=== PATIENT | female | born 1950 | race Caucasian/White ===

== ENCOUNTER 2017-02-07 14:41 | Emergency (ER) | payer OTHER, MEDICARE ==
[2017-02-07 14:54] VITALS: BP 123/81
[2017-02-07] MEDS ORDERED: BACITRACIN OINT TOP ONE (15:41)
--- NOTE | 2017-02-07 15:41 | ED Physician Documentation ---
History of Present Illness - Stated complaint Stated Complaint: REMOVE STITCHES - Chief complaint Chief Complaint: General - Additonal information Additional information: hx from pt hernán ant L mcnally region a week ago healed well here for staple removal Review of Systems Constitutional: denies: Fever Skin: reports: Laceration (s) PD PAST MEDICAL HISTORY - Past Medical History Past Medical History: Yes Psych: Anxiety, Bipolar disorder - Past Surgical History Past Surgical History: No - Present Medications Home Medications: Ambulatory Orders Medication Instructions Recorded Confirmed Atenolol 25 mg PO DAILY 12/20/14 02/07/17 Bupropion HCl [Wellbutrin Sr] 400 mg PO DAILY 12/20/14 02/07/17 Levothyroxine Sodium [Levoxyl] 25 mg PO DAILY 12/20/14 02/07/17 Oxcarbazepine [Trileptal] 300 mg PO BID 12/20/14 02/07/17 Quetiapine Fumarate [Seroquel Xr] 800 mg PO DAILY 12/20/14 02/07/17 - Allergies Allergies/Adverse Reactions: Allergies Allergy/AdvReac Type Severity Reaction Status Date / Time Penicillins AdvReac Rash Verified 02/07/17 14:54 - Social History Does the pt smoke?: No Smoking Status: Never smoker Does the pt drink ETOH?: No Does the pt have substance abuse?: No - Immunizations Immunizations are current?: Yes Immunizations: TDAP current <10years - POLST Patient has POLST: No PD ED PE NORMAL - Vitals Vital signs reviewed: Yes - Derm Derm: Other (wound appears well healed, hernán removed by nurse Foster) Results - Vitals Vitals: Vital Signs - 24 hr 02/07/17 14:51 Temperature 36.2 C L Heart Rate 66 Respiratory 16 Rate Blood Pressure 123/81 H O2 Saturation 99 Oxygen O2 Source Room air Departure - Departure Disposition: 01 Home, Self Care Clinical Impression: Removal of hernán Condition: Good Instructions: ED Stap Removal No Complication
== END 2017-02-07 15:44 | disposition home or self-care (01) ==
LOC: ED 14:41
DX: S81.812D Laceration without foreign body, left lower leg, subsequent encounter (principal); X58.XXXD Exposure to other specified factors, subsequent encounter
CPT/HCPCS: 99283; A9270

== ENCOUNTER 2017-04-26 09:55 | Day surgery (SDC) | payer OTHER, MEDICARE ==
[2017-04-26] MEDS ORDERED: LACTATED RINGERS 1,000 ML IV ONE ×2 (10:03→11:01)
[2017-04-26] MEDS ORDERED: MIDAZOLAM 2 MG/2 ML VIAL IVP ONE (10:20)
[2017-04-26] MEDS ORDERED: fentaNYL 100 MCG/2 ML VIAL IVP ONE (10:20)
[2017-04-26 11:43] VITALS: BP 111/56
== END 2017-04-26 09:56 | disposition home or self-care (01) ==
LOC: SDS 09:55
PROVIDERS: ATTEND Surgery
PROC: 0DJD8ZZ Inspection of Lower Intestinal Tract, Via Natural or Artificial Opening Endoscopic (ICD-10-PCS; principal; 2017-04-26 11:00)
DX: Z12.11 Encounter for screening for malignant neoplasm of colon (principal); K64.8 Other hemorrhoids
CPT/HCPCS: G0121; J7120

== ENCOUNTER 2017-07-19 09:25 | Emergency (ER) | payer OTHER, MEDICARE ==
[2017-07-19] MEDS ORDERED: IOPAMIDOL-300 100 ML VIAL IVP ONE ×2 (09:26→15:56)
[2017-07-19] MEDS ORDERED: ACETAMINOPHEN 325 MG TABLET PO STA (10:17)
[2017-07-19] MEDS ORDERED: SODIUM CHLORIDE 0.9% 1,000 ML IV ONE (10:18)
[2017-07-19 10:30] LABS: BASOPHILS % (AUTO) 0.3 %; HGB - HEMOGLOBIN 12.7 g/dL (12.0-16.0); LYMPHOCYTES # (AUTO) 1.3 10^3/uL (1.5-3.5); LYMPHOCYTES % (AUTO) 30.9 %; MEAN CORPUSCULAR HEMOGLOBIN 32.3 pg (27.0-31.0); MEAN CORPUSCULAR HGB CONC 33.5 g/dL (32.0-36.0); MEAN CORPUSCULAR VOLUME 96.2 fL (81.0-99.0); MEAN PLATELET VOLUME 9.6 fL (7.9-10.8); MONOCYTES # (AUTO) 0.4 10^3/uL (0.0-1.0); MONOCYTES % (AUTO) 10.6 %; NEUTROPHILS # (AUTO) 2.4 10^3/uL (1.5-6.6); NEUTROPHILS % (AUTO) 58.2 %; PLT - PLATELET COUNT 193 10^3/uL (130-450); RED BLOOD COUNT 3.94 10^6/uL (4.20-5.40); RED CELL DISTRIBUTION WIDTH 13.2 % (12.0-15.0); WHITE BLOOD COUNT 4.1 x10^3/uL (4.8-10.8)
[2017-07-19 10:40] LABS: ALBUMIN 4.3 g/dL (3.2-5.5); ALBUMIN/GLOBULIN RATIO 1.3 (1.0-2.2); BILIRUBIN,TOTAL 0.3 mg/dL (0.2-1.0); CALCIUM 9.7 mg/dL (8.5-10.3); CREATININE 1.5 mg/dL (0.4-1.0); TOTAL PROTEIN 7.5 g/dL (6.7-8.2)
--- NOTE | 2017-07-19 10:52 | ED Physician Documentation ---
PD HPI FOCAL NEURO - Stated complaint Stated Complaint: WU/UNABLE TO SPEAK/UNBALANCED - Chief complaint Chief Complaint: Neuro - History obtained from History obtained from: Patient - History of Present Illness Timing - onset: Today Timing - details: Abrupt onset (awoke with feeling of thinking slowly/foggy, some slurring of speech though speech content is okay, and some headache. No focal weakness per se. Had similar 10 days ago while on vacation in [place], and seen in hospital there with overnight stay, testing included: ECG, labs, CT head, carotid dopplers (15% stenosis at most), MRI brain (no CVA, age related white matter disease, no MS/tumors), and ECHO (showing a possible PFO/ASD small defect and recommended DEIDRE or ECHO with Bubble study). Dx with presumed TIA and to take baby ASA daily, which she has done the past 4-5 days (did not initially) .) Severity of deficit: Moderate Weakness: No: Face, Arm, Leg Numbness: No: Face, Arm, Leg Associated symptoms: Headache, Other (trouble speaking) Baseline status: positive: A&OX3, ambulatory, indep Similar symptoms before: Diagnosis (TIA with symptoms lasted about a day, occurred 10 days ago while on vacation in [place], seen at Hospital there with CT, labs, MRI, carotids, and ECHO. No findings except question of ASD/PFO. told to take ASA daily. Was doing okay until today, with similar symptoms again. Trouble speaking without focal weakness. Feeling off balance.) Recently seen: Emergency Dept, Admitted (10 days ago in [place] - she has summary and imaging/lab reports and results with her.) Review of Systems Constitutional: denies: Fever Eyes: denies: Loss of vision, Decreased vision Nose: denies: Rhinorrhea / runny nose, Congestion Throat: denies: Sore throat Cardiac: denies: Chest pain / pressure, Palpitations Respiratory: denies: Cough GI: denies: Abdominal Pain, Nausea, Vomiting, Diarrhea : denies: Dysuria, Frequency Skin: denies: Rash, Lesions, Abrasion (s), Laceration (s) Neurologic: reports: Difficulty speaking, Confused, Headache. denies: Generalized weakness, Focal weakness, Numbness, Near syncope, Head injury Psychiatric: reports: Insomnia (had taken 2 Ativan last night for sleep, but does this occasionally. More often takes one.). denies: Depressed, Anxiety PD PAST MEDICAL HISTORY - Past Medical History Cardiovascular: Hypertension Respiratory: None Neuro: TIA Endocrine/Autoimmune: None GI: None : None Psych: Depression, Anxiety, Bipolar disorder Musculoskeletal: None - Past Surgical History Past Surgical History: No General: Colonoscopy - Present Medications Home Medications: Ambulatory Orders Medication Instructions Recorded Confirmed Bupropion HCl [Wellbutrin Sr] 150 mg PO DAILY 12/20/14 04/26/17 Levothyroxine Sodium [Levoxyl] 25 mg PO DAILY 12/20/14 04/26/17 Oxcarbazepine [Trileptal] 300 mg PO BID 12/20/14 04/26/17 Quetiapine Fumarate [Seroquel Xr] 800 mg PO DAILY 12/20/14 04/26/17 Aripiprazole [Abilify] 30 mg PO DAILY 04/26/17 04/26/17 LORazepam [Ativan] 0.5 mg PO DAILY 04/26/17 04/26/17 Metoprolol Succinate 25 mg PO DAILY 04/26/17 04/26/17 - Allergies Allergies/Adverse Reactions: Allergies Allergy/AdvReac Type Severity Reaction Status Date / Time Penicillins AdvReac Rash Verified 02/07/17 14:54 - Social History Does the pt smoke?: No Smoking Status: Never smoker Does the pt drink ETOH?: No Does the pt have substance abuse?: No - Family History Family history: reports: Non contributory - Immunizations Immunizations are current?: Yes Immunizations: TDAP current <10years - POLST Patient has POLST: No PD ED PE NORMAL - Vitals Vital signs reviewed: Yes - General General: No acute distress, Well developed/nourished, Other (seems somnolent and with some slower articulation but no dysarthria per se. Content of speech is good. ) - HEENT HEENT: Atraumatic, Ears normal, Pharynx benign, Other - Neck Neck: Supple, no meningeal sign, No adenopathy - Cardiac Cardiac: RRR, No murmur - Respiratory Respiratory: Clear bilaterally - Abdomen Abdomen: Soft, Non tender - Female Female : Deferred - Rectal Rectal: Deferred - Back Back: No CVA TTP - Derm Derm: Normal color, Warm and dry - Extremities Extremities: No deformity, No tenderness to palpate, Normal ROM s pain, No edema , No calf tenderness / cord - Neuro Neuro: Alert and oriented X 3, telephone lines repairer 2-12 intact, No motor deficit, No sensory deficit Eye Opening: Spontaneous Motor: Obeys Commands Verbal: Oriented GCS Score: 15 - Psych Psych: Normal mood NIHSS - Level of Consciousness Level of consciousness: (0) Alert, Keenly responsive LOC Questions: (0) Answers both Q's correct LOC Commands: (0) Performs both correctly - Gaze Best Gaze: (0) Normal - Visual Visual: (0) No loss - Facial Palsy Facial Palsy: (0) Normal, symmetrical movement - Motor Arms (both separate) Motor Arm (right): (0) No drift Motor Arm (left): (0) No drift - Motor Legs (both separate) Motor Leg (right): (0) No drift Motor Leg (left): (0) No drift - Limb Ataxia Limb Ataxia: (0) Absent - Sensory Sensory: (0) Normal - Best Language Best Language: (0) No aphasia - Dysarthria Dysarthria: (1) [id number] dysarthria - Extinction and Inattention (formally neg Extinction and inattention: (0) No abnormality - Total Score/Results Total Score/Result: 1 Results - Vitals Vitals: Vital Signs - 24 hr 07/19/17 07/19/17 07/19/17 09:37 11:30 13:02 Temperature 36.8 C Heart Rate 73 80 69 Respiratory 14 22 13 Rate Blood Pressure 145/84 H 118/99 H 152/89 H O2 Saturation 98 99 100 Oxygen O2 Source Room air - Labs Labs: Laboratory Tests 07/19/17 07/19/17 09:55 09:55 WBC 4.1 L RBC 3.94 L Hgb 12.7 Hct 37.9 MCV 96.2 MCH 32.3 H MCHC 33.5 RDW 13.2 Plt Count 193 MPV 9.6 Neut # 2.4 Lymph # 1.3 L [place] # 0.4 Eos # 0.0 Baso # 0.0 Absolute Nucleated RBC 0.00 Nucleated RBC % 0.1 Sodium 140 Potassium 3.9 Chloride 108 Carbon Dioxide 27 Anion Gap 5.0 L BUN 32 H Creatinine 1.5 H Estimated GFR (MDRD) 35 L Glucose 71 Calcium 9.7 Total Bilirubin 0.3 AST 24 ALT 17 Alkaline Phosphatase 95 Total Protein 7.5 Albumin 4.3 Globulin 3.2 Albumin/Globulin Ratio 1.3 Lipase 29 - Rads (name of study) head CT and brain angio Radiology: Prelim report reviewed (no acute findings. No focal areas of abnormal flow. ) PD MEDICAL DECISION MAKING - ED course Complexity details: reviewed results, re-evaluated patient, considered differential (cosndier TIA, complex migraine, med side effect, MS or other cause. She had had MRI brain, carotid dopplers, ECHO, and labs 10 days ago and had reports with her. These do not need repeating. CT/CT-A here does not show any flow limitation of brain. Have her increase aspirin dose. ), d/w patient, d/ w foreign legal consultant (Dr. Morales her psychiatrist, who did not feel any of her current meds are culprit for symptoms and would leave current doses. She will see patient next . ) Departure - Departure Disposition: Home, Self Care Clinical Impression: Aphasia TIA (transient ischemic attack) Qualifiers: Transient cerebral ischemia type: unspecified Qualified Code(s): G45.9 - Transient cerebral ischemic attack, unspecified Condition: Stable Record reviewed to determine appropriate education?: Yes Instructions: ED Transient Ischemic Attack Follow-Up: Kalee Morales MD [Physician No Access] - Comments: Drink lots of fluids. Increase your aspirin dose from 1-2 baby aspirins daily. Continue your other medications with the exception of do not take any Ativan at night for sleep. Follow-up with Dr. Chamorro next week on . Return or recheck if recurrent or worsening symptoms. At this point we will presume vascular such as TIA although it also consider possibility of medication side effect, complex migraine, other causes. Discharge Date/Time: 07/19/17 13:28
[2017-07-19] MEDS ORDERED: IOPAMIDOL-300 100 ML VIAL ONE (11:17)
--- NOTE | 2017-07-19 11:46 | CT Preliminary Report ---
Exam: CT HEAD ANGIO Impression: 1. There is no acute intracranial abnormality on the noncontrast CT scan of the head. If the patient has persistent symptoms then further evaluation with MRI of the brain without contrast may be useful and can be obtained as deemed clinically appropriate. 2. There is a mild degree of chronic small vessel ischemia. 3. There is no hemodynamically significant stenosis within the head. There is no evidence of proximal arterial occlusion. 4. Normal postcontrast CT scan of the head. SITE ID: [id number]
--- NOTE | 2017-07-19 12:49 | CT Report ---
EXAM: CT ANGIOGRAM HEAD. CT SCAN OF THE HEAD WITHOUT AND WITH CONTRAST. EXAM DATE: 07/19/2017 11:06 AM CLINICAL HISTORY: Aphasia and balance symptoms today. COMPARISON: CT scan of the head without contrast 02/18/2016. TECHNIQUE: - CT Scan Head: Using a multidetector scanner, axial images were acquired from the foramen magnum to the skull vertex prior to and following contrast administration. - CT Angiogram: Using a multidetector scanner, high-resolution axial images were acquired from the sk ull base through vertex following rapid infusion of intravenous contrast. Reformats: Multiplanar MIP reformats were reconstructed. Nascet criteria used for stenosis measurement. IV Contrast: 80 mL Isovue 300. In accordance with CT protocol optimization, one or more of the following dose reduction techniques w ere utilized for this exam: automated exposure control, adjustment of mA and/or KV based on patient s ize, or use of iterative reconstructive technique. FINDINGS: CT Scan of the Head Without Contrast: The bilateral mastoid air cells are normally aerated. The imaged portions of the paranasal sinuses are normally aerated. There is a mild degree of hyperostosis frontalis. There is no acute fracture of the calvaria. There is a small hypodensity demonstrated in the dorsum o f the left putamen (11, 3). This may reflect an old lacunar infarction versus a small perivascular sp juan r. The goodman-white differentiation remains distinct. There is mild periventricular, subcortical, and deep white matter hypodensities consistent with a mil d degree of chronic small vessel ischemia. There is minimal generalized volume loss. There is no acute collection of blood or blood products, or mass. There is no midline shift. The goodman -white differentiation remains distinct outside of the areas of chronic ischemia. CT Scan of the Head With Contrast: The imaged portions of the orbits are normal in appearance. There is normal enhancement within the brain parenchyma. There is normal enhancement within the deep venous sinuses. CT Angiogram of the Head: The right vertebral artery intradural segment is smooth and nonstenotic. The left vertebral artery in tradural segment is smooth and nonstenotic. The right posterior inferior cerebellar artery is without flow-limiting stenosis. The left posterior-inferior cerebellar artery is without flow-limiting stenosis. The basilar artery is without flow-limiting stenosis. The right anterior inferior cerebellar artery is smooth and nonstenotic. The left anterior inferior c erebellar artery is smooth and nonstenotic. The basilar artery is without flow-limiting stenosis. The left superior cerebellar artery is without flow-limiting stenosis. The right superior cerebellar artery is without flow-limiting stenosis. The left P1 and P2 segments of the left posterior cerebral artery are without flow-limiting stenosis. The right P1 and P2 segments of the right posterior cerebral artery are without flow-limiting stenosi s. The right intracranial internal carotid artery is smooth and nonstenotic. The left intracranial inter nal carotid artery is smooth and nonstenotic. The right M1 and proximal M2 segments of the right middle cerebral artery are smooth and nonstenotic. The left M1 and proximal M2 segments of the left middle cerebral artery are smooth and nonstenotic. The right A1 segment is smooth and nonstenotic. The left A1 segment is smooth and nonstenotic. There is a small anterior communicating artery. The right A2 segment of the right anterior cerebral artery is smooth and nonstenotic. The left A2 segment of the left anterior cerebral artery is smooth and non stenotic. IMPRESSION: 1. There is no acute intracranial abnormality on the noncontrast CT scan of the head. If the patient has persistent symptoms, then further evaluation with MRI of the brain without contrast may be useful and can be obtained as deemed clinically appropriate. 2. There is a mild degree of chronic small vessel ischemia. 3. There is no hemodynamically significant stenosis within the head. There is no evidence of proximal arterial occlusion. 4. Normal postcontrast CT scan of the head. Referring Provider Line: [phone] SITE ID: [id number]
[2017-07-19 13:03] VITALS: BP 152/89
[2017-07-19] MEDS ORDERED: ASPIRIN CHEW 81 MG TABLET PO STA (13:09)
== END 2017-07-19 13:28 | disposition home or self-care (01) ==
LOC: ED 09:25
DX: G45.9 Transient cerebral ischemic attack, unspecified (principal); R47.01 Aphasia; I10 Essential (primary) hypertension
CPT/HCPCS: 36415; 70496; 80053; 83690; 85025; 96360; 96361; 99284; A9270; Q9967

== ENCOUNTER 2018-03-12 10:00 | Outpatient (CLI) | payer OTHER, MEDICARE ==
--- NOTE | 2018-03-12 17:31 | MRI Report ---
Reason: TIA Procedure Date: 03/12/2018 Accession Number: [id number] / [id number] Procedure: MRI - Angio Brain W/O (MRA) CPT Code: FULL RESULT: MR ANGIOGRAM HEAD WITHOUT CONTRAST INDICATION: 68-year-old female. Episode of aphasia and balance difficulty in late June 2017. Concern for possible TIA. Please assess. TECHNIQUE: 3D [id number] MR angiography. COMPARISON: CT angiogram 07/19/2017. FINDINGS: The internal carotid arteries remain widely patent bilaterally. No ICA aneurysm is demonstrated. The A1 segment of the left anterior cerebral artery is minimally hypoplastic with slightly larger right A1 segment. No definite anterior indicating arteries demonstrated. Good flow-related enhancement is seen in the imaged SAM branches bilaterally. The middle cerebral arteries are unremarkable. No aneurysm is demonstrated and there is no evidence of occlusion or hemodynamically significant stenosis affecting main branches of either MCA. The vertebral arteries and PICAs appear widely patent. No aneurysm is demonstrated at either PICA origin. The basilar artery, superior cerebellar arteries and posterior cerebral arteries appear widely patent. Neither posterior communicating artery is identified with certainty. No aneurysms are seen arising from the basilar artery trunk or apex. IMPRESSION: Normal [place] [facility] [place] MR angiogram.
== END 2018-03-12 10:01 | disposition home or self-care (01) ==
LOC: DI 10:00
PROVIDERS: ATTEND Psychiatry & Neurology Neurology
DX: G45.9 Transient cerebral ischemic attack, unspecified (principal)
CPT/HCPCS: 70544; 81599; 87070; 87205; 87529

== ENCOUNTER 2018-12-20 08:00 | Outpatient (CLI) | payer OTHER, MEDICARE | END 2018-12-20 23:59 | disposition home or self-care (01) | LOC: LAB.R 08:00 | PROVIDERS: ATTEND Internal Medicine Endocrinology, Diabetes & Metabolism | DX: E34.9 Endocrine disorder, unspecified (principal) | CPT/HCPCS: 81599; 82340; 82570 ==

== ENCOUNTER 2019-02-18 09:12 | Outpatient (CLI) | payer OTHER, MEDICARE | END 2019-02-18 09:13 | disposition critical access hospital (66) | LOC: EMS 09:12 | PROVIDERS: ATTEND Surgery | DX: M54.5 Low back pain (principal); M25.552 Pain in left hip; V48.5XXA Car driver injured in noncollision transport accident in traffic accident, initial encounter; Y92.413 State road as the place of occurrence of the external cause | CPT/HCPCS: A0425; A0429 ==

== ENCOUNTER 2019-02-18 09:30 | Emergency (ER) | payer OTHER, MEDICARE ==
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
[2019-02-18] MEDS ORDERED: HYDROmorphone 1 MG/ML CARPUJECT IM STA (11:56)
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
[2019-02-18] MEDS ORDERED: SODIUM CHLORIDE 0.9% 1,000 ML IV ONE (14:27)
[2019-02-18] MEDS ORDERED: HYDROmorphone 1 MG/ML CARPUJECT IVP STA (14:27)
[2019-02-18 14:56] LABS: BASOPHILS # (AUTO) 0.1 10^3/uL (0.0-0.1); BASOPHILS % (AUTO) 0.5 %; EOSINOPHILS # (AUTO) 0.2 10^3/uL (0.0-0.7); EOSINOPHILS % (AUTO) 1.6 %; HGB - HEMOGLOBIN 12.4 g/dL (12.0-16.0); LYMPHOCYTES # (AUTO) 0.4 10^3/uL (1.5-3.5); MEAN CORPUSCULAR HEMOGLOBIN 32.5 pg (27.0-31.0); MEAN CORPUSCULAR HGB CONC 32.7 g/dL (32.0-36.0); MEAN CORPUSCULAR VOLUME 99.2 fL (81.0-99.0); MEAN PLATELET VOLUME 10.7 fL (7.9-10.8); MONOCYTES # (AUTO) 0.5 10^3/uL (0.0-1.0); NEUTROPHILS % (AUTO) 88.5 %; PLT - PLATELET COUNT 201 10^3/uL (130-450); RED BLOOD COUNT 3.82 10^6/uL (4.20-5.40); RED CELL DISTRIBUTION WIDTH 13.1 % (12.0-15.0); WHITE BLOOD COUNT 10.2 x10^3/uL (4.8-10.8)
[2019-02-18 15:10] LABS: ALBUMIN 4.1 g/dL (3.2-5.5); ALBUMIN/GLOBULIN RATIO 1.3 (1.0-2.2); BILIRUBIN,TOTAL 0.8 mg/dL (0.2-1.0); CALCIUM 9.6 mg/dL (8.5-10.3); CREATININE 1.5 mg/dL (0.4-1.0); TOTAL PROTEIN 7.2 g/dL (6.7-8.2)
[2019-02-18 15:24] VITALS: BP 116/78
== END 2019-02-18 16:45 | disposition short-term general hospital (02) ==
LOC: EDUNIT# → ED 09:30
DX: S32.010A Wedge compression fracture of first lumbar vertebra, initial encounter for closed fracture (principal); S32.020A Wedge compression fracture of second lumbar vertebra, initial encounter for closed fracture; S22.080A Wedge compression fracture of T11-T12 vertebra, initial encounter for closed fracture; V48.0XXA Car driver injured in noncollision transport accident in nontraffic accident, initial encounter; Y92.410 Unspecified street and highway as the place of occurrence of the external cause; E04.9 Nontoxic goiter, unspecified; M17.12 Unilateral primary osteoarthritis, left knee; M51.36 Other intervertebral disc degeneration, lumbar region; M50.321 Other cervical disc degeneration at C4-C5 level; M85.88 Other specified disorders of bone density and structure, other site; I10 Essential (primary) hypertension
CPT/HCPCS: 36415; 72100; 72125; 72131; 73564; 80053; 83690; 85025; 96372; 96374; 99284; 99285; J1170

== ENCOUNTER 2019-02-18 16:38 | Outpatient (CLI) | payer OTHER, MEDICARE | END 2019-02-18 16:39 | disposition short-term general hospital (02) | LOC: EMS 16:38 | PROVIDERS: ATTEND Surgery | DX: M54.5 Low back pain (principal) | CPT/HCPCS: A0425; A0428 ==

== ENCOUNTER 2019-04-16 09:38 | Outpatient (CLI) | payer BC, MEDICARE ==
[2019-04-16 10:22] LABS: CREATININE 1.4 mg/dL (0.4-1.0); PHOSPHORUS 4.3 mg/dL (2.5-4.6)
== END 2019-04-16 09:39 | disposition home or self-care (01) ==
LOC: LAB 09:38
PROVIDERS: ATTEND Internal Medicine Endocrinology, Diabetes & Metabolism
DX: M81.0 Age-related osteoporosis without current pathological fracture (principal)
CPT/HCPCS: 36415; 82306; 82565; 83970; 84100

== ENCOUNTER 2019-07-31 10:43 | Outpatient (CLI) | payer BC, MEDICARE ==
--- NOTE | 2019-07-31 19:57 | XRAY Report ---
Reason: WEDGE COMPRESSION FRACTURE LUMBAR VERTEBRA Procedure Date: 07/31/2019 Accession Number: [id number] / [id number] Procedure: XR - Thoracic Spine 3 View CPT Code: Final Report FULL RESULT: EXAM: THORACIC SPINE RADIOGRAPHY EXAM DATE: 07/31/2019 11:07 AM. CLINICAL HISTORY: WEDGE COMPRESSION FRACTURE LUMBAR VERTEBRA. Compression fractures T12, L1, and L2. COMPARISON: LUMBAR SPINE 2 VIEW 02/18/2019 10:39 AM. TECHNIQUE: 4 views. FINDINGS: Alignment: New moderate focal kyphosis at T12. No abnormal subluxation is identified on flexion or extension views. Mild right convex thoracic spine and left convex thoracolumbar junction scoliosis, increased. Bones: The thoracolumbar junction is poorly penetrated. There are moderate anterior superior wedge compression deformities of T12 and L1 vertebrae which appear increased. There is a moderate anterior superior wedge compression deformity of L2 vertebral body without significant change. Disks: Minimal disk height loss and endplate osteophyte formation indicating degenerative disk disease at multiple mid thoracic levels. Soft Tissues: Normal. The visualized lungs and cardiomediastinal silhouette are normal. IMPRESSION: 1. The thoracolumbar junction is suboptimally visualized on lateral views. Increased moderate T12 and L1 and unchanged moderate L2 anterior superior wedge compression deformities. New moderate focal kyphosis at T12. 2. Mild right convex thoracic and moderate left convex thoracolumbar junction scoliosis, increased. 3. Minimal multilevel midthoracic degenerative disk disease. RADIA
== END 2019-07-31 10:44 | disposition home or self-care (01) ==
LOC: DI 10:43
PROVIDERS: ATTEND Neurological Surgery
DX: M48.54XD Collapsed vertebra, not elsewhere classified, thoracic region, subsequent encounter for fracture with routine healing (principal); M48.56XD Collapsed vertebra, not elsewhere classified, lumbar region, subsequent encounter for fracture with routine healing; M40.204 Unspecified kyphosis, thoracic region; M51.34 Other intervertebral disc degeneration, thoracic region
CPT/HCPCS: 72072

== ENCOUNTER 2019-08-13 13:21 | Outpatient (CLI) | payer BC, MEDICARE | END 2019-08-13 13:22 | disposition home or self-care (01) | LOC: LAB 13:21 | PROVIDERS: ATTEND Family Medicine | DX: E03.9 Hypothyroidism, unspecified (principal) | CPT/HCPCS: 36415; 84443 ==

== ENCOUNTER 2019-11-14 10:59 | Emergency (ER) | payer BC, MEDICARE ==
[2019-11-14] MEDS ORDERED: SODIUM CHLORIDE 0.9% 1,000 ML IV STA (11:11)
--- NOTE | 2019-11-14 11:13 | ED Physician Documentation ---
PD HPI FOCAL NEURO - Stated complaint Stated Complaint: DIFFICULTY SPEAKING, DIZZY, HEAD PRESSURE - History obtained from History obtained from: Patient, Family - History of Present Illness Timing - onset: Enter time (844), Today Timing - duration: Minutes Timing - details: Abrupt onset, Still present Severity of deficit: Moderate Weakness: No: Face, Arm, Hand, Leg, Foot, Right, Left Numbness: No: Face, Arm, Hand, Leg, Foot, Right, Left Associated symptoms: Headache. No: Nausea / vomiting, Seizure, Syncope, Fall, Head injury, Chest pain, Neck pain, Back pain, Fever Contributing factors: negative: Anticoagulated, Vascular dz, Atrial fibrillation Baseline status: positive: A&OX3, ambulatory, indep Similar symptoms before: Has not had sx before Recently seen: Not recently seen - Additional information Additional information: 69-year-old female with history of bipolar disorder and hypertension has had prior TIA in today she developed difficulty with her speech again and felt quite off balance when she was walking. This occurred about 15 minutes after a walk with a friend. She has had prior work-up of a TIA in 2018 and she never completed the bubble study for the echo. She had complete recovery from her prior TIAs and the presentation today is similar to what she has had twice previously.She has developed previously both dysarthria and an off-balance gait. She has never developed unilateral weakness or numbness. Review of Systems Constitutional: denies: Fever Eyes: denies: Loss of vision, Decreased vision, Photophobia Ears: denies: Ear pain Nose: denies: Congestion Throat: denies: Sore throat Cardiac: denies: Chest pain / pressure, Palpitations Respiratory: denies: Dyspnea, Cough GI: denies: Abdominal Pain, Nausea, Vomiting : denies: Dysuria, Frequency PD PAST MEDICAL HISTORY - Past Medical History Cardiovascular: Hypertension Respiratory: None Endocrine/Autoimmune: None GI: None : None Psych: Depression, Anxiety, Bipolar disorder Musculoskeletal: None - Past Surgical History Past Surgical History: No General: Colonoscopy - Present Medications Home Medications: Ambulatory Orders Medication Instructions Recorded Confirmed Levothyroxine Sodium [Levoxyl] 25 mg PO DAILY 12/20/14 04/26/17 OXcarbazepine [Trileptal] 300 mg PO BID 12/20/14 04/26/17 Quetiapine Fumarate [Seroquel Xr] 800 mg PO DAILY 12/20/14 04/26/17 buPROPion HCl [Wellbutrin Sr] 150 mg PO DAILY 12/20/14 04/26/17 Aripiprazole [Abilify] 30 mg PO DAILY 04/26/17 04/26/17 LORazepam [Ativan] 0.5 mg PO DAILY 04/26/17 04/26/17 Metoprolol Succinate 25 mg PO DAILY 04/26/17 04/26/17 - Allergies Allergies/Adverse Reactions: Allergies Allergy/AdvReac Type Severity Reaction Status Date / Time Penicillins AdvReac Rash Verified 02/18/19 09:34 - Social History Does the pt smoke?: No Smoking Status: Never smoker Does the pt drink ETOH?: No Does the pt have substance abuse?: No - Immunizations Immunizations are current?: Yes Immunizations: TDAP current <10years - POLST Patient has POLST: No PD ED PE NORMAL - Vitals Vital signs reviewed: Yes (Hypertensive mild) - General General: Alert and oriented X 3, No acute distress, Well developed/nourished - HEENT HEENT: Atraumatic, PERRL, EOMI, Ears normal, Other (Dry mucous membranes) - Neck Neck: Supple, no meningeal sign, No bony TTP - Cardiac Cardiac: RRR, No murmur - Respiratory Respiratory: No respiratory distress, Clear bilaterally - Abdomen Abdomen: Soft, Non tender - Back Back: No CVA TTP, No spinal TTP - Derm Derm: Normal color, Warm and dry, No rash - Extremities Extremities: No deformity, No edema, No calf tenderness / cord - Neuro Neuro: Alert and oriented X 3, door builder 2-12 intact, No motor deficit, No sensory deficit, Other (Dysarthric speech Is mildly dysarthric) Eye Opening: Spontaneous Motor: Obeys Commands Verbal: Oriented GCS Score: 15 - Psych Psych: Normal mood, Normal affect NIHSS - Time Time: 11:10 - Level of Consciousness Level of consciousness: (0) Alert, Keenly responsive LOC Questions: (0) Answers both Q's correct LOC Commands: (0) Performs both correctly - Gaze Best Gaze: (0) Normal - Visual Visual: (0) No loss - Facial Palsy Facial Palsy: (0) Normal, symmetrical movement - Motor Arms (both separate) Motor Arm (right): (0) No drift Motor Arm (left): (0) No drift - Motor Legs (both separate) Motor Leg (right): (0) No drift Motor Leg (left): (0) No drift - Limb Ataxia Limb Ataxia: (0) Absent - Sensory Sensory: (0) Normal - Best Language Best Language: (0) No aphasia - Dysarthria Dysarthria: (1) Rges-ro-myoqnxli dysarthria - Extinction and Inattention (formally neg Extinction and inattention: (0) No abnormality - Total Score/Results Total Score/Result: 1 Results - Vitals Vitals: Vital Signs - 24 hr 11/14/19 11/14/19 11/14/19 11:09 11:34 12:00 Temperature 36.8 C 36.4 C L Heart Rate 81 61 60 Respiratory 16 16 16 Rate Blood Pressure 148/84 H 137/86 H 133/82 H O2 Saturation 99 99 97 11/14/19 11/14/19 13:05 14:00 Temperature 36.8 C Heart Rate 61 62 Respiratory 22 21 Rate Blood Pressure 135/86 H 140/89 H O2 Saturation 99 98 Oxygen O2 Source Room air - EKG (time done) 1139 Rate: Rate (enter#) (59) Ischemia: Normal ST segments Compare to prior EKG: Old EKG unavailable Computer interpretation: Agree with computer - Labs Labs: Laboratory Tests 11/14/19 11/14/19 11/14/19 11:10 11:10 11:10 WBC 6.4 RBC 3.63 L Hgb 11.8 L Hct 36.5 L MCV 100.6 H MCH 32.5 H MCHC 32.3 RDW 13.0 Plt Count 214 MPV 10.8 Neut # (Auto) 2.8 Lymph # (Auto) 2.0 [place] # (Auto) 0.6 Eos # (Auto) 1.0 H Baso # (Auto) 0.1 Absolute Nucleated RBC 0.00 Nucleated RBC % 0.0 PT 11.3 INR 1.0 Sodium 140 Potassium 4.3 Chloride 111 Carbon Dioxide 21 Anion Gap 8.0 BUN 48 H Creatinine 1.6 H Estimated GFR (MDRD) 32 L Glucose 104 H Lactic Acid Calcium 9.4 Total Bilirubin 0.5 AST 18 ALT 16 Alkaline Phosphatase 114 Total Protein 7.0 Albumin 3.9 Globulin 3.1 Albumin/Globulin Ratio 1.3 Lipase 40 Urine Color Urine Clarity Urine pH Ur Specific [place] Urine Protein Urine Glucose (UA) Urine Ketones Urine Occult Blood Urine Nitrite Urine Bilirubin Urine Urobilinogen Ur Leukocyte Esterase Ur Microscopic Review Urine Culture Comments 11/14/19 11/14/19 11:10 12:42 WBC RBC Hgb Hct MCV MCH MCHC RDW Plt Count MPV Neut # (Auto) Lymph # (Auto) [place] # (Auto) Eos # (Auto) Baso # (Auto) Absolute Nucleated RBC Nucleated RBC % PT INR Sodium Potassium Chloride Carbon Dioxide Anion Gap BUN Creatinine Estimated GFR (MDRD) Glucose Lactic Acid 0.9 Calcium Total Bilirubin AST ALT Alkaline Phosphatase Total Protein Albumin Globulin Albumin/Globulin Ratio Lipase Urine Color YELLOW Urine Clarity CLEAR Urine pH 6.0 Ur Specific [place] <=1.005 Urine Protein NEGATIVE Urine Glucose (UA) NEGATIVE Urine Ketones NEGATIVE Urine Occult Blood NEGATIVE Urine Nitrite NEGATIVE Urine Bilirubin NEGATIVE Urine Urobilinogen 0.2 (NORMAL) Ur Leukocyte Esterase NEGATIVE Ur Microscopic Review NOT INDICATED Urine Culture Comments NOT INDICATED - Rads (name of study) CTA neck Radiology: Prelim report reviewed (Impression: No hemodynamically significant stenosis can be seen within the arteries of the neck. Bilateral thyroid nodules are seen, which are more prominent on the left than the right. If not previously worked up, please consider a dedicated thyroid ultrasound for further evaluation. Cervical sp), EMP read indepedently ( Cervical spine degenerative changes are seen.), See rad report CTA head Radiology: Prelim report reviewed (Impression: No significant intracranial abnormality is seen. No significant abnormality of intracranial arteries can be seen. If there strong clinical concern concern for stroke, please consider a dedicated brain MRI for further evaluation (assuming that there is no contraindication to MRI).), EMP read indepedently, See rad report Procedures - IVC sono (time) 1114 Bedside IVC sono: IVC measures (cm) (1.12), IVC collapsed c insp (cm) (comp lete), Dehydration (est 1+ liter deficit.) PD MEDICAL DECISION MAKING - ED course Complexity details: reviewed old records, reviewed results, re-evaluated patient, considered differential, d/w patient, d/w family ED course: 69-year-old female presents with being off balance and dysarthric in her speech. She has had similar presentation 2 years ago with a TIA both in [place] and here in [place] within 2 weeks of each other. She has had a complete work-up for stroke. Today she is found to be dehydrated on interrogation the inferior vena cava and she is administered saline. She has improvement in her symptoms and will follow up with her PMD to finish a stroke work up to include an echo bubble study. Departure - Departure Disposition: 01 Home, Self Care Clinical Impression: Dehydration TIA (transient ischemic attack) Qualifiers: Transient cerebral ischemia type: other Qualified Code(s): G45.8 - Other transient cerebral ischemic attacks and related syndromes Condition: Stable Instructions: ED Dehydration Follow-Up: RESHMA BETH MD [Primary Care Provider] - Comments: Today it appears you were dehydrated and this likely contributed to the TIA today. Hydrate well with at least 64 onces of water per day. You will need to follow up with Reshma about a "bubble study" of your heart. Discharge Date/Time: 11/14/19 14:27
[2019-11-14 11:18] LABS: BASOPHILS # (AUTO) 0.1 10^3/uL (0.0-0.1); BASOPHILS % (AUTO) 0.8 %; EOSINOPHILS % (AUTO) 15.1 %; HGB - HEMOGLOBIN 11.8 g/dL (12.0-16.0); LYMPHOCYTES % (AUTO) 31.4 %; MEAN CORPUSCULAR HEMOGLOBIN 32.5 pg (27.0-31.0); MEAN CORPUSCULAR HGB CONC 32.3 g/dL (32.0-36.0); MEAN CORPUSCULAR VOLUME 100.6 fL (81.0-99.0); MEAN PLATELET VOLUME 10.8 fL (7.9-10.8); MONOCYTES # (AUTO) 0.6 10^3/uL (0.0-1.0); MONOCYTES % (AUTO) 8.6 %; NEUTROPHILS # (AUTO) 2.8 10^3/uL (1.5-6.6); NEUTROPHILS % (AUTO) 43.8 %; PLT - PLATELET COUNT 214 10^3/uL (130-450); RED BLOOD COUNT 3.63 10^6/uL (4.20-5.40); WHITE BLOOD COUNT 6.4 x10^3/uL (4.8-10.8)
[2019-11-14 11:24] LABS: PT - PROTHROMBIN TIME 11.3 secs (9.9-12.6)
[2019-11-14 11:32] LABS: ALBUMIN 3.9 g/dL (3.2-5.5); ALBUMIN/GLOBULIN RATIO 1.3 (1.0-2.2); BILIRUBIN,TOTAL 0.5 mg/dL (0.2-1.0); CALCIUM 9.4 mg/dL (8.5-10.3); CREATININE 1.6 mg/dL (0.4-1.0)
[2019-11-14] MEDS ORDERED: IOVERSOL 320 100 ML VIAL IVP ONE (11:46)
--- NOTE | 2019-11-14 11:56 | CT Report ---
PROCEDURE: ANGIO HEAD W/WO INDICATIONS: dysarthria, vertigo CONTRAST: IV CONTRAST: Optiray 320 ml: 80 PO CONTRAST: *NO PO CONTRAST TECHNIQUE: Precontrast 4.5 mm thick angled axial sections acquired from the foramen magnum to the vertex. Afte r the administration of intravenous contrast, 1 mm thick sections acquired through the [place] of [place] is. Postcontrast 4.5 mm thick sections then re-acquired from the foramen magnum to the vertex. 3-di mensional bqatqps-sjxqpbwez-zhpifuoeog (MIP) and/or volume rendering reformats were acquired of the c entral intracranial vasculature. For radiation dose reduction, the following was used: automated ex posure control, adjustment of mA and/or kV according to patient size. COMPARISON: 07/19/2017, 03/12/18. Correlation is also made with the accompanying neck CT angiogram. C orrelation is also made with noncontrast head CT 02/18/2016 as well as brain MR angiogram 03/12/2018. FINDINGS: Image quality: Diagnostic, with note made of motion artifact. Anterior circulation: Intracranial internal carotid arteries are normal in size and flow. The flow within the paired anterior cerebral arteries is normal and symmetric. The flow within the middle cer ebral arteries is normal and symmetric. The anterior communicating artery is only faintly seen. No aneurysms are seen. Posterior circulation: Visualized portions of the vertebral arteries demonstrate normal caliber, and join to form a normal appearing basilar artery. Flow within the posterior cerebral arteries is norm al and symmetric. No aneurysms are seen. CSF spaces: Ventricles are normal in size and shape. Basal cisterns are patent. No extra-axial flu id collections. Brain: No midline shift. No intracranial bleeds or masses. Davis-white matter interface appears int act. Skull and face: Calvarium and facial bones appear intact, without suspicious lesions. Hyperostosis frontalis is incidentally noted, which is not frankly abnormal for a female patient of this age. Sinuses: Visualized sinuses and mastoids are clear. IMPRESSION: No significant intracranial abnormality is seen. No significant abnormality of the intracranial arteries can be seen. If there is strong clinical concern for a stroke, please consider a dedicated brain MRI for further e valuation (assuming that there is no contraindication to MRI). Reviewed by: Vitor Castillo MD on 11/14/2019 10:55 AM PANFILO Approved by: Vitor Castillo MD on 11/14/2019 10:55 AM PANFILO Station ID: [id number]
--- NOTE | 2019-11-14 12:00 | CT Report ---
PROCEDURE: ANGIO NECK W INDICATIONS: dysarthria, vertigo CONTRAST: IV CONTRAST: Optiray 320 ml: 80 PO CONTRAST: *NO PO CONTRAST TECHNIQUE: After the administration of intravenous contrast, 1.5 mm axial sections acquired from the aortic arch to the [place] of [place]. Coronal 3-D maximum intensity projection (MIP) and/or volume rendering ref ormats were then performed. For radiation dose reduction, the following was used: automated exposur e control, adjustment of mA and/or kV according to patient size. COMPARISON: Correlation is made with the accompanying head CT angiogram 11/14/2019 correlation is mad e with prior cervical spine CT 02/18/2019 FINDINGS: Image quality: Excellent. Carotid system: The great vessels demonstrate a conventional anatomy as they arise from the aortic a rch. The origins of the common carotid arteries appear patent. The common carotid arteries demonstr ate normal calibers and courses. The bifurcation regions appear normal bilaterally. The internal ca rotid arteries demonstrate normal caliber and course. Posterior circulation: The origins of the vertebral arteries appear patent. The more superior porti ons of the vertebral arteries demonstrate normal course and caliber. They join to form a normal appe aring basilar artery. Soft tissues: Visualized neck soft tissues demonstrate no suspicious abnormalities. The thyroid is enlarged and demonstrates irregular nodules. The largest solitary nodule seen on the left measuring 2 cm. Areas of dense calcification can be seen on both sides, although left more prominent than right. Bones: No suspicious bony lesions. Visualized cervical spine appears normally aligned. Relatively prominent cervical spine degenerative changes are seen, including moderate disc space narrowing at C 3-C4, with at least moderate disc space narrowing at C4-C5 and C5-C6. IMPRESSION: No hemodynamically significant stenosis can be seen within the arteries of the neck. Bilateral thyroid nodules are seen, which are more prominent on the left than on the right. If not a rtery previously worked up, please consider a dedicated thyroid ultrasound for further evaluation. Cervical spine degenerative changes are seen. The estimate of stenosis included in the report of the imaging study was calculated using the NASCET method Reviewed by: Vitor Castillo MD on 11/14/2019 10:58 AM PANFILO Approved by: Vitor Castillo MD on 11/14/2019 10:58 AM AKRAYMOND Station ID: [id number]
[2019-11-14 13:05] LABS: BILIRUBIN,URINE NEGATIVE (NEGATIVE); GLUCOSE, URINE (UA) NEGATIVE (NEGATIVE); KETONES,URINE (UA) NEGATIVE (NEGATIVE); LEUKOCYTE ESTERASE, URINE NEGATIVE (NEGATIVE); NITRITE,URINE NEGATIVE (NEGATIVE); OCCULT BLOOD,URINE NEGATIVE (NEGATIVE); PROTEIN,URINE NEGATIVE (NEGATIVE); UROBILINOGEN,URINE 0.2 (NORMAL) E.U./dL (NORMAL)
[2019-11-14 13:11] LABS: CLARITY,URINE CLEAR (CLEAR)
[2019-11-14 14:27] VITALS: BP 140/89
[2019-11-17] MEDS ORDERED: IOVERSOL 320 100 ML VIAL IVP ONE (07:17)
== END 2019-11-14 14:27 | disposition home or self-care (01) ==
LOC: ED 10:59
DX: G45.8 Other transient cerebral ischemic attacks and related syndromes (principal); E86.0 Dehydration; I10 Essential (primary) hypertension; E04.1 Nontoxic single thyroid nodule; M50.30 Other cervical disc degeneration, unspecified cervical region
CPT/HCPCS: 36415; 70496; 70498; 80053; 81003; 83605; 83690; 85025; 85610; 93005; 96360; 99284; Q9967; 81001; 87086

== ENCOUNTER 2020-10-10 14:11 | Emergency (ER) | payer BC, MEDICARE ==
--- NOTE | 2020-10-10 15:11 | ED Physician Documentation ---
PD HPI SYNCOPE - Stated complaint Stated Complaint: GLF/WEAKNESS - Chief complaint Chief Complaint: Ext Problem - History obtained from History obtained from: Patient - History of Present Illness Witnessed: Witnessed (her was with her and while walking her dog, she felt that both legs "gave out". She fell. Abrasion to elbow. Has felt lightheaded, off balance since yesterday. Started new med of lithium 4 days ago, with 300 mg initially, increased by 300 mg daily (so 600 mg, 900 mg, then 1200 mg last night.) Timing - onset: Yesterday Preceding symptoms: Light headed, Other (feeling off balance, slight confused). No: Nausea / vomiting Associated symptoms: No: Seizure, Headache, Palpitations, Nausea / vomiting Contributing factors: Recent med change (started Atka Rx by her psychiatrist 4 days ago), Decreased PO intake (somewhat less fluid intake recently). No: Just stood up Injury occurred: Fell. No: Head injury, Neck injury Similar symptoms before: Has not had sx before Recently seen: Clinic (psychiatrist. Has appt with her Resume Specialist this coming week.) Review of Systems Constitutional: denies: Fever, Chills Nose: denies: Rhinorrhea / runny nose, Congestion Throat: denies: Sore throat Respiratory: denies: Cough GI: reports: Diarrhea (loose stool the past 2 days, no noted melena.). denies: Nausea, Vomiting Neurologic: reports: Generalized weakness, Confused. denies: Headache, Head injury Psychiatric: reports: Depressed. 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 : Renal insuffiency (sees Resume Specialist out of [facility].) HEENT: None Psych: Depression, Anxiety, Bipolar disorder Musculoskeletal: None Derm: None - Past Surgical History Past Surgical History: No General: Colonoscopy - Present Medications Home Medications: Ambulatory Orders Medication Instructions Recorded Confirmed Levothyroxine Sodium [Levoxyl] 25 mcg PO DAILY 12/20/14 10/10/20 OXcarbazepine [Trileptal] 300 mg PO BID 12/20/14 10/10/20 Quetiapine Fumarate [Seroquel Xr] 300 mg PO HS 12/20/14 10/10/20 buPROPion HCl [Wellbutrin Sr] 150 mg PO DAILY 12/20/14 10/10/20 ARIPiprazole [Abilify] 30 mg PO DAILY 04/26/17 10/10/20 LORazepam [Ativan] 0.5 mg PO DAILY 04/26/17 10/10/20 Metoprolol Succinate 25 mg PO DAILY 04/26/17 10/10/20 Aspirin EC [Ecotrin] 81 mg PO DAILY 10/10/20 10/10/20 Atorvastatin Calcium 40 mg PO HS 10/10/20 10/10/20 calcitrioL [Rocaltrol] 0.25 mcg PO ONCE 10/10/20 10/10/20 - Allergies Allergies/Adverse Reactions: Allergies Allergy/AdvReac Type Severity Reaction Status Date / Time Penicillins AdvReac Rash Verified 10/10/20 14:25 - Social History Does the pt smoke?: No Smoking Status: Never smoker Does the pt drink ETOH?: No Does the pt have substance abuse?: No - Immunizations Immunizations are current?: Yes Immunizations: TDAP current <10years - POLST Patient has POLST: No PD ED PE NORMAL - Vitals Vital signs reviewed: Yes - General General: Alert and oriented X 3, No acute distress, Well developed/nourished - HEENT HEENT: PERRL, EOMI (no nystagmus) - Neck Neck: Supple, no meningeal sign, No adenopathy - Cardiac Cardiac: RRR, No murmur - Respiratory Respiratory: Clear bilaterally - Abdomen Abdomen: Soft, Non tender - Derm Derm: Normal color, Warm and dry - Extremities Extremities: No tenderness to palpate, Normal ROM s pain - Neuro Neuro: Alert and oriented X 3, No motor deficit, No sensory deficit, Normal speech Eye Opening: Spontaneous Motor: Obeys Commands Verbal: Oriented GCS Score: 15 - Psych Psych: Normal mood Results - Vitals Vitals: Vital Signs - 24 hr 10/10/20 10/10/20 14:19 16:17 Temperature 36.7 C Heart Rate 65 65 Respiratory 16 18 Rate Blood Pressure 124/72 127/88 H O2 Saturation 98 100 Oxygen O2 Source Room air - EKG (time done) 15:51 Rate: Rate (enter#) (63) Rhythm: NSR [place]: Normal Intervals: Normal [place] QRS: Normal Ischemia: Normal ST segments. No: ST elevation c/w ischemia, ST depression, T wave inversion (but has some flattening diffusely) - Labs Labs: Laboratory Tests 10/10/20 10/10/20 10/10/20 15:10 15:15 15:15 WBC 7.3 RBC 3.91 L Hgb 12.6 Hct 39.9 MCV 102.0 H MCH 32.2 H MCHC 31.6 L RDW 13.2 Plt Count 184 MPV 11.2 H Neut # (Auto) 4.7 Lymph # (Auto) 1.[address] # (Auto) 0.6 Eos # (Auto) 0.6 Baso # (Auto) 0.1 Absolute Nucleated RBC 0.00 Nucleated RBC % 0.0 Sodium 135 Potassium 4.1 Chloride 102 Carbon Dioxide 25 Anion Gap 8.0 BUN 30 H Creatinine 2.0 H Estimated GFR (MDRD) 25 L Glucose 74 Calcium 9.4 Magnesium Total Bilirubin 0.7 AST 22 ALT 17 Alkaline Phosphatase 95 Total Protein 7.3 Albumin 4.3 Globulin 3.0 Albumin/Globulin Ratio 1.4 Lipase 35 TSH Urine Color YELLOW Urine Clarity CLEAR Urine pH 6.5 Ur Specific [place] <=1.005 Urine Protein NEGATIVE Urine Glucose (UA) NEGATIVE Urine Ketones NEGATIVE Urine Occult Blood NEGATIVE Urine Nitrite NEGATIVE Urine Bilirubin NEGATIVE Urine Urobilinogen 0.2 (NORMAL) Ur Leukocyte Esterase NEGATIVE Ur Microscopic Review NOT INDICATED Urine Culture Comments NOT INDICATED Last Dose Date Last Dose Time Salicylates < 6.0 Urine Opiates Screen NEGATIVE Ur Oxycodone Screen NEGATIVE Urine Methadone Screen NEGATIVE Ur Propoxyphene Screen NEGATIVE Acetaminophen < 10 L Ur Barbiturates Screen NEGATIVE Ur Tricyclics Screen POSITIVE H Ur Phencyclidine Scrn NEGATIVE Ur Amphetamine Screen NEGATIVE U Methamphetamines Scrn NEGATIVE U Benzodiazepines Scrn NEGATIVE [place] Urine Cocaine Screen NEGATIVE U Cannabinoids Screen NEGATIVE Ethyl Alcohol < 5.0 10/10/20 10/10/20 10/10/20 15:15 15:15 15:15 WBC RBC Hgb Hct MCV MCH MCHC RDW Plt Count MPV Neut # (Auto) Lymph # (Auto) [place] # (Auto) Eos # (Auto) Baso # (Auto) Absolute Nucleated RBC Nucleated RBC % Sodium Potassium Chloride Carbon Dioxide Anion Gap BUN Creatinine Estimated GFR (MDRD) Glucose Calcium Magnesium 2.3 Total Bilirubin AST ALT Alkaline Phosphatase Total Protein Albumin Globulin Albumin/Globulin Ratio Lipase TSH 0.37 Urine Color Urine Clarity Urine pH Ur Specific [place] Urine Protein Urine Glucose (UA) Urine Ketones Urine Occult Blood Urine Nitrite Urine Bilirubin Urine Urobilinogen Ur Leukocyte Esterase Ur Microscopic Review Urine Culture Comments Last Dose Date UNKNOWN Last Dose Time UNKNOWN Salicylates Urine Opiates Screen Ur Oxycodone Screen Urine Methadone Screen Ur Propoxyphene Screen Acetaminophen Ur Barbiturates Screen Ur Tricyclics Screen Ur Phencyclidine Scrn Ur Amphetamine Screen U Methamphetamines Scrn U Benzodiazepines Scrn [place] 1.38 Urine Cocaine Screen U Cannabinoids Screen Ethyl Alcohol PD MEDICAL DECISION MAKING - ED course Complexity details: reviewed results (sodium good. Atka is above therapeutic at 1.38 but below toxic, though the level itself does not matter as much since has symptoms. Last dose was last PM so unlikely to be still increasing blood level. Her Creatine is increased from baseline (1.6 prior and 2.0 now), so worse metabolism of lithium), considered differential (lightheaded, confused, ataxic since starting Atka with quick increase in dose. Consider side effect of new med versus toxicity, and can check levels and lytes. ), d/w patient Departure - Departure Disposition: Home, Self Care Clinical Impression: Lightheaded, Ataxia, Renal insufficiency Atka toxicity Qualifiers: Encounter type: initial encounter Injury intent: accidental or unintentional Qualified Code(s): T56.891A - Toxic effect of other metals, accidental (unintentional), initial encounter Condition: Stable Record reviewed to determine appropriate education?: Yes Follow-Up: RESHMA BETH MD [Primary Care Provider] - Comments: Stay well-hydrated. Hold your lithium for the next 2 to 3 days until you can consult with your psychiatrist. Follow-up with your senior j2ee developer Sunday as planned. Your lithium level is 1.38 which is above the therapeutic range but not quite into the "toxic range". However you are having symptoms related to it so I would still have you hold the dosings. It is likely climbing higher than anticipated due to your renal insufficiency. Your kidney function here showed a creatinine of 2.0 and a GFR of 25. Your other electrolytes are good. Discussed with your psychiatrist if she wants to continue you on the lithium. I f so the dosing would want to be much lower, for example 300 mg daily and then have the level checked after 7 to 10 days or such before increasing doses. Return if worsening symptoms or if you have not improved well in the next day or 2. Discharge Date/Time: 10/10/20 17:05
[2020-10-10 15:20] LABS: MUDS CUTOFF CONCENTRATIONS CUTOFF CONC BELOW:
[2020-10-10 15:20] LABS: BASOPHILS # (AUTO) 0.1 10^3/uL (0.0-0.1); EOSINOPHILS # (AUTO) 0.6 10^3/uL (0.0-0.7); EOSINOPHILS % (AUTO) 7.8 %; HCT - HEMATOCRIT 39.9 % (37.0-47.0); HGB - HEMOGLOBIN 12.6 g/dL (12.0-16.0); LYMPHOCYTES # (AUTO) 1.4 10^3/uL (1.5-3.5); LYMPHOCYTES % (AUTO) 19.2 %; MEAN CORPUSCULAR HEMOGLOBIN 32.2 pg (27.0-31.0); MEAN CORPUSCULAR HGB CONC 31.6 g/dL (32.0-36.0); MEAN PLATELET VOLUME 11.2 fL (7.9-10.8); MONOCYTES # (AUTO) 0.6 10^3/uL (0.0-1.0); NEUTROPHILS # (AUTO) 4.7 10^3/uL (1.5-6.6); NEUTROPHILS % (AUTO) 63.9 %; PLT - PLATELET COUNT 184 10^3/uL (130-450); RED BLOOD COUNT 3.91 10^6/uL (4.20-5.40); RED CELL DISTRIBUTION WIDTH 13.2 % (12.0-15.0); WHITE BLOOD COUNT 7.3 x10^3/uL (4.8-10.8)
[2020-10-10 15:22] LABS: BILIRUBIN,URINE NEGATIVE (NEGATIVE); GLUCOSE, URINE (UA) NEGATIVE (NEGATIVE); KETONES,URINE (UA) NEGATIVE (NEGATIVE); LEUKOCYTE ESTERASE, URINE NEGATIVE (NEGATIVE); NITRITE,URINE NEGATIVE (NEGATIVE); OCCULT BLOOD,URINE NEGATIVE (NEGATIVE); PH,URINE 6.5 PH (5.0-7.5); PROTEIN,URINE NEGATIVE (NEGATIVE); UROBILINOGEN,URINE 0.2 (NORMAL) E.U./dL (NORMAL)
[2020-10-10 15:27] LABS: CLARITY,URINE CLEAR (CLEAR)
[2020-10-10 15:31] LABS: AMPHETAMINE SCREEN,URINE NEGATIVE (NEGATIVE); BARBITURATE SCREEN,UR NEGATIVE (NEGATIVE); BENZODIAZEPINES SCREEN, URINE NEGATIVE (NEGATIVE); COCAINE SCREEN URINE NEGATIVE (NEGATIVE); METHADONE SCREEN, URINE NEGATIVE (NEGATIVE); METHAMPHETAMINES SCREEN, URINE NEGATIVE (NEGATIVE); OPIATE SCREEN, URINE NEGATIVE (NEGATIVE); OXYCODONE SCREEN, URINE NEGATIVE (NEGATIVE); PROPOXYPHENE SCREEN, URINE NEGATIVE (NEGATIVE); THC CANNABINOID SCREEN, URINE NEGATIVE (NEGATIVE); TRICYCLIC ANTIDEPRESSANT,URINE POSITIVE (NEGATIVE)
[2020-10-10 15:36] LABS: ACETAMINOPHEN < 10 ug/mL (10-30); ALBUMIN 4.3 g/dL (3.2-5.5); ALBUMIN/GLOBULIN RATIO 1.4 (1.0-2.2); ALKALINE PHOSPHATASE 95 IU/L (42-121); ALT ALANINE AMINOTRANSFERASE 17 IU/L (10-60); AST ASPARTATE AMINOTRANSFERASE 22 IU/L (10-42); BILIRUBIN,TOTAL 0.7 mg/dL (0.2-1.0); BUN - BLOOD UREA NITROGEN 30 mg/dL (6-20); CALCIUM 9.4 mg/dL (8.5-10.3); CARBON DIOXIDE - CO2 25 mmol/L (21-32); CHLORIDE 102 mmol/L (101-111); ETOH - ETHANOL < 5.0 mg/dL; GFR - MDRD 25 (>89); GLUCOSE 74 mg/dL (70-100); LIPASE 35 U/L (22-51); POTASSIUM 4.1 mmol/L (3.5-5.0); SALICYLATE < 6.0 mg/dL; SODIUM 135 mmol/L (135-145); TOTAL PROTEIN 7.3 g/dL (6.7-8.2)
[2020-10-10 15:57] LABS: LITHIUM 1.38 mmol/L
[2020-10-10 16:18] VITALS: BP 127/88
== END 2020-10-10 17:05 | disposition home or self-care (01) ==
LOC: ED 14:11
DX: R42 Dizziness and giddiness (principal); N28.9 Disorder of kidney and ureter, unspecified; T50.995A Adverse effect of other drugs, medicaments and biological substances, initial encounter; Z79.899 Other long term (current) drug therapy
CPT/HCPCS: 36415; 80053; 80178; 80306; 80307; 81003; 83690; 83735; 84443; 85025; 93005; 99283; G0480; 80320; 80329; 81001; 87086

== ENCOUNTER 2021-08-12 18:24 | Emergency (ER) | payer MEDICARE ==
[2021-08-12] MEDS ORDERED: LIDOCAINE-EPINEPH-TETRACAINE 3 ML SYRINGE TOP STA (18:47)
--- NOTE | 2021-08-12 19:03 | ED Physician Documentation ---
History of Present Illness - Stated complaint Stated Complaint: FALL,FACE INJURY - Chief complaint Chief Complaint: Trauma Hd/Nk - History obtained from History obtained from: Patient - History of Present Illness Timing: Today Pain level max: 2 Pain level now: 1 - Additonal information Additional information: Patient is a 71-year-old female who presents to the emergency department after a trip and ground-level fall onto concrete today. Has a laceration above the left eyebrow. No loss of consciousness. Does not take blood thinners. No head neck or back pain. Unknown last tetanus shot. No vomiting. No loss of consciousness. Nothing makes it better or worse. Patient was wearing glasses and sustained the laceration periorbitally around the left eye. Also has some mild swelling and bruising. 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 : Renal insuffiency HEENT: None Psych: Depression, Anxiety, Bipolar disorder Musculoskeletal: None Derm: None - Past Surgical History Past Surgical History: No General: Colonoscopy Ortho: Spine surgery - Present Medications Home Medications: Ambulatory Orders Medication Instructions Recorded Confirmed Levothyroxine Sodium [Levoxyl] 25 mcg PO DAILY 12/20/14 08/12/21 OXcarbazepine [Trileptal] 300 mg PO BID 12/20/14 08/12/21 Quetiapine Fumarate [Seroquel Xr] 300 mg PO HS 12/20/14 08/12/21 buPROPion HCl [Wellbutrin Sr] 150 mg PO DAILY 12/20/14 08/12/21 ARIPiprazole [Abilify] 30 mg PO DAILY 04/26/17 08/12/21 LORazepam [Ativan] 0.5 mg PO DAILY 04/26/17 08/12/21 Metoprolol Succinate 25 mg PO DAILY 04/26/17 08/12/21 Aspirin EC [Ecotrin] 81 mg PO DAILY 10/10/20 08/12/21 Atorvastatin Calcium 40 mg PO HS 10/10/20 08/12/21 calcitrioL [Rocaltrol] 0.25 mcg PO ONCE 10/10/20 08/12/21 - Allergies Allergies/Adverse Reactions: Allergies Allergy/AdvReac Type Severity Reaction Status Date / Time Penicillins AdvReac Rash Verified 08/12/21 18:41 - Social History Does the pt smoke?: No Smoking Status: Never smoker Does the pt drink ETOH?: No Does the pt have substance abuse?: No - Immunizations Immunizations are current?: Yes Immunizations: TDAP current <10years - POLST Patient has POLST: No PD ED PE NORMAL - Vitals Vital signs reviewed: Yes - General General: Alert and oriented X 3, No acute distress - HEENT HEENT: PERRL, EOMI, Moist mucous membranes, Other (periorbital bruising L eye. laceration to the L cheek, superficial. also laceration above the L eye, 2cm. linear.. no FB) - Neck Neck: Supple, no meningeal sign - Cardiac Cardiac: RRR, Strong equal pulses - Respiratory Respiratory: No respiratory distress, Clear bilaterally - Derm Derm: Warm and dry - Neuro Neuro: Alert and oriented X 3 - Psych Psych: Normal mood, Normal affect Results - Vitals Vitals: Vital Signs - 24 hr 08/12/21 08/12/21 18:34 21:51 Temperature 36.4 C L Heart Rate 77 71 Respiratory 17 16 Rate Blood Pressure 154/97 H 143/81 H O2 Saturation 100 99 Oxygen O2 Source Room air - Rads (name of study) head CT Radiology: Final report received, EMP read contemporaneously, See rad report maxillofacial CT Radiology: Final report received, EMP read contemporaneously, See rad report Procedures - Laceration (location) L cheek Length in cm: 4 Wound type: Linear, Curved, Superficial, Clean Neurovascular status: Sensory intact, Motor intact, Vascular intact Wound preparation: Irrigated copiously NS Skin layer closure: Dermabond Other: Patient tolerated well, No complications, Neurovascular intact, Dressing applied, Tetanus UTD L lateral forehead Length in cm: 2 Wound type: Linear, Superficial, Clean Neurovascular status: Sensory intact, Motor intact, Vascular intact Wound preparation: Irrigated copiously NS Skin layer closure: Dermabond Other: Patient tolerated well, No complications, Neurovascular intact, Dressing applied, Tetanus UTD PD MEDICAL DECISION MAKING - ED course Complexity details: reviewed results, re-evaluated patient, considered differential, d/w patient, d/w family ED course: No acute findings on head CT or maxillofacial CT. Lacerations repaired with De rmabond. Tolerated well. Patient does have periorbital swelling and bruising. The lacerations do not require any sutures at this time. Tetanus is up-to-date. Patient and family counseled regarding signs and symptoms for which I believe and urgent re-evaluation would be necessary. Patient with good understanding of and agreement to plan and is comfortable going home at this time This document was made in part using voice recognition software. While efforts are made to proofread this document, sound alike and grammatical errors may occur. IMPRESSION: 1. No facial bone fractures identified. 2. Left periorbital and premaxillary soft tissue swelling and subcutaneous edema. 3. Visualized thyroid demonstrates numerous bilateral nodules including partially calcified nodules. Recommend further evaluation with thyroid ultrasound if clinically indicated. IMPRESSION: No CT evidence of acute intracranial pathology. No acute skull fracture. Departure - Departure Disposition: 01 Home, Self Care Clinical Impression: Periorbital contusion of left eye Qualifiers: Encounter type: initial encounter Qualified Code(s): S05.12XA - Contusion of eyeball and orbital tissues, left eye, initial encounter Facial laceration Qualifiers: Encounter type: initial encounter Qualified Code(s): S01.81XA - Laceration without foreign body of other part of head, initial encounter Closed head injury Qualifiers: Encounter type: initial encounter Qualified Code(s): S09.90XA - Unspecified injury of head, initial encounter Condition: Good Instructions: ED Head Injury Closed, ED Laceration Facial Skin Glue Follow-Up: RESHMA BETH MD [Primary Care Provider] - As Needed Comments: Please follow-up with your doctor as needed for further care. Keep the wounds clean. Do not apply any ointments or antibiotic ointment to the glue as it may dissolve the glue. The wounds should heal within a few days. Your CT scan does not show any acute fractures. Discharge Date/Time: 08/12/21 21:53
--- NOTE | 2021-08-12 19:27 | CT Report ---
PROCEDURE: HEAD WO INDICATIONS: fall, head injury TECHNIQUE: Noncontrast 4.5 mm thick angled axial sections acquired from the foramen magnum to the vertex. For r adiation dose reduction, the following was used: automated exposure control, adjustment of mA and/or kV according to patient size. COMPARISON: 11/14/2019 FINDINGS: Image quality: Excellent. CSF spaces: Basal cisterns are patent. No extra-axial fluid collections. The ventricles are symmet mary in size and shape. Brain: No intracranial bleeds or masses. There is cerebral volume loss for age, with resultant vent ricular and sulcal prominence. There are periventricular and deep white matter chronic small vessel ischemic changes. There is intracranial internal carotid artery atherosclerosis. Skull and face: Calvarium and visualized facial bones appear intact, without suspicious lesions. Sinuses: Visualized sinuses and mastoids are clear. IMPRESSION: No CT evidence of acute intracranial pathology. No acute skull fracture. Reviewed by: Benja Toro MD on 08/12/2021 7:26 PM PDT Approved by: Benja Toro MD on 08/12/2021 7:26 PM PDT Station ID: [id number]
[2021-08-12 21:52] VITALS: BP 143/81
--- NOTE | 2021-08-12 21:55 | CT Report ---
PROCEDURE: MAXILLOFACIAL WO INDICATIONS: L facial injury TECHNIQUE: Noncontrast 1.5 mm thick axial images acquired from the mandible through the frontal sinuses, with co tree and sagittal reformatting. For radiation dose reduction, the following was used: automated ex posure control, adjustment of mA and/or kV according to patient size. COMPARISON: Concurrent CT of the head, CT head 02/18/2016. FINDINGS: Image quality: Excellent. Bones and teeth: Orbital soliman are intact. Sinus soliman show no fracture or deformity. Nasal bones and septum are intact. Visualized portions of the mandible demonstrate no fractures or subluxation. Zygomatic arches are intact. Pterygoid plates are intact. Visualized portions of the skull base an d auditory canals are intact. Sinuses: Paranasal sinuses are aerated, without fluid levels, mucosal thickening, or mucoceles. Mas toid air cells are aerated. Soft tissues: There is left periorbital and premaxillary soft tissue swelling. There is associated s ubcutaneous edema without a discrete fluid collection. The globes appear intact. No intraorbital lia ections. No enlarged lymph nodes. No soft tissue lacerations or debris. The visualized thyroid demo nstrates multiple nodules bilaterally including a partially visualized left nodule measuring up to 2. 2 cm with internal calcifications. Additional calcified nodules are also demonstrated bilaterally. Vascular: Visualized vascular structures appear normal in the absence of contrast. Bony vascular fo ramina and canals are intact. IMPRESSION: 1. No facial bone fractures identified. 2. Left periorbital and premaxillary soft tissue swelling and subcutaneous edema. 3. Visualized thyroid demonstrates numerous bilateral nodules including partially calcified nodules. Recommend further evaluation with thyroid ultrasound if clinically indicated. Reviewed by: David Rodgers MD on 08/12/2021 9:53 PM PDT Approved by: David Rodgers MD on 08/12/2021 9:53 PM PDT Station ID: [id number]
== END 2021-08-12 21:53 | disposition home or self-care (01) ==
LOC: ED 18:24
DX: I10 Essential (primary) hypertension (principal); S01.412A Laceration without foreign body of left cheek and temporomandibular area, initial encounter; S01.81XA Laceration without foreign body of other part of head, initial encounter; W01.198A Fall on same level from slipping, tripping and stumbling with subsequent striking against other object, initial encounter
CPT/HCPCS: 12014; 99282; 99284

== ENCOUNTER 2021-10-09 11:13 | Outpatient (CLI) | payer MEDICARE | END 2021-10-09 11:14 | disposition EMS.NT | LOC: EMS 11:13 | DX: M79.673 Pain in unspecified foot (principal) ==